=== PATIENT | female | born 1995 | race Caucasian/White ===

== ENCOUNTER 2018-03-29 16:51 | Inpatient (IN) | payer OTHER ==
[~2018-03-29] VITALS: Ht 172.7 cm; Wt 87.1 kg
[~2018-03-29 16:51] MED LIST: ANAPROX DS550 MG PO; PENICILLIN V P500 MG PO; TYLENOL325 MG PO; ZOFRAN ODT4 MG PO; ZOFRAN ODT8 MG PO
[2018-03-30] MEDS ORDERED: ACYCLOVIR400 MG (06:52)
--- NOTE | 2018-03-31 08:59 | PR ---
[facility] [address] [facility] [place], [place] [address] Signed PP Progress Notes Datetime Report Generated by CPN: 03/31/2018 08:59 SUBJECTIVE: [id number] Pain: Within normal limits Nausea/Vomiting: Denies Vital Signs: [id number] Vital Signs: Reviewed; Within Normal Limits EXAM: [id number] Cardiovascular: Not Done Respiratory: Not Done Abdomen/Uterus: Abnormal Lochia: Normal Vulva/Perineum: Not Done Breasts: Not Done CVA Tenderness: Not Done Extremities: Normal Incision: Not Applicable Progress: Normal Exam Comments: Fundus firm, NT @ U-1. H/H 10.8/32.3, WBC 12.3, plat 205k IMPRESSION/PLAN/PROCEDURES: [id number] Impression: Normal progression Plan: Continue present management Procedures: None Progress Notes: Doing well. Will continue present management. Signing Physician: Mariah Cantrell MD Copies: ~ *Electronically Signed* 03/31/18 0859 MARIAH CANTRELL MD PATIENT NAME: ZBIGNIEW BROWERA REGINA PROGRESS NOTE DATE OF : [birth year] PHYSICIAN: MARIAH CANTRELL MD RPT #: [id number] REPORT IS CONFIDENTIAL AND NOT TO BE RELEASED WITHOUT AUTHORIZATION
--- NOTE | 2018-04-01 09:05 | PR ---
[facility] [address] [facility] [place] [address] Signed PP Progress Notes Datetime Report Generated by CPMadai: 04/01/2018 09:05 SUBJECTIVE: [id number] Pain: Within normal limits Nausea/Vomiting: Denies Vital Signs: [id number] Vital Signs: Reviewed; Within Normal Limits EXAM: [id number] Cardiovascular: Not Done Respiratory: Not Done Abdomen/Uterus: Abnormal Lochia: Normal Vulva/Perineum: Not Done Breasts: Not Done CVA Tenderness: Not Done Extremities: Normal Incision: Not Applicable Progress: Abnormal Exam Comments: Fundus firm, NT @ U-1. IMPRESSION/PLAN/PROCEDURES: [id number] Impression: Normal progression Plan: Discharge Procedures: None Progress Notes: Doing well. She is ready for D/C. Signing Physician: Mariah Cantrell MD Copies: ~ *Electronically Signed* 04/01/18904 MARIAH CANTRELL MD PATIENT NAME: MARINO BROWER PROGRESS NOTE DATE OF : [birth year] PHYSICIAN: MARIAH CANTRELL MD RPT #: [id number] REPORT IS CONFIDENTIAL AND NOT TO BE RELEASED WITHOUT AUTHORIZATION
== END 2018-04-01 10:50 | disposition home or self-care (01) | DRG 775 ==
LOC: FBC 03-30 06:10 → MS 03-31 08:46 → FBC 03-31 09:02
PROVIDERS: ADMIT Obstetrics & Gynecology
PROC: 10E0XZZ Delivery of Products of Conception, External Approach (ICD-10-PCS; principal; 2018-03-30)
PROC: 0UQMXZZ Repair Vulva, External Approach (ICD-10-PCS; 2018-03-30)
PROC: 3E0S3BZ Introduction of Anesthetic Agent into Epidural Space, Percutaneous Approach (ICD-10-PCS; 2018-03-30)
PROC: 00HU33Z Insertion of Infusion Device into Spinal Canal, Percutaneous Approach (ICD-10-PCS; 2018-03-30)
DX: O66.0 Obstructed labor due to shoulder dystocia (principal); O69.1XX0 Labor and delivery complicated by cord around neck, with compression, not applicable or unspecified; O71.82 Other specified trauma to perineum and vulva; Z3A.39 39 weeks gestation of pregnancy; Z37.0 Single live birth
CPT/HCPCS: 01960; 36415; 85027; J2540; J2550; J2590; J3010; J7120